=== PATIENT | male | born 1965 | race Caucasian/White ===

== ENCOUNTER 2021-05-27 21:47 | Emergency (ER) | payer OTHER ==
[2021-05-27] MEDS ORDERED: Sodium Chloride 0.9% 1,000 ML IV SCH (22:30)
[2021-05-27] MEDS ORDERED: Sodium Chloride 0.9% 10 ML Syringe FLUSH PRN (22:30)
[2021-05-27] MEDS ORDERED: LORazepam 2 MG/ML SDV IVPUSH ONE (22:31)
--- NOTE | 2021-05-28 00:15 | EDM.PDOC ---
ED HPI GENERAL MEDICAL PROBLEM - General Chief Complaint: Gastrointestinal Problem Stated Complaint: HERNIA COMPLAINT Time Seen by Provider: 05/27/21 22:05 Source of Information: Reports: Patient History Limitations: Reports: No Limitations - History of Present Illness INITIAL COMMENTS - FREE TEXT/NARRATIVE: The patient has an umbilical hernia. He had this for over a years. For the past 5 to 6 months he can push it back in. He says today he cannot push it back in. He has a little discomfort. He has no nausea or vomiting, fever, chills, cough, chest pain, shortness of breath or bowel problems. Onset: Gradual Duration: Hour(s): Location: Reports: Abdomen Quality: Reports: Ache Severity: Mild Improves with: Reports: None Worsens with: Reports: None Associated Symptoms: Reports: No Other Symptoms Treatments IT SYSTEMS ANALYST: Reports: NSAIDS Mid-Anterior Abdomen Pain Score (Numeric/FACES): 4 - Related Data Allergies Allergy/AdvReac Type Severity Reaction Status Date / Time No Known Allergies Allergy Verified 05/27/21 22:02 Home Meds: Home Meds Buprenorphine HCl/Naloxone HCl [Suboxone 12 mg-3 mg Sl Film] 1 each SL DAILY 05/27/21 [History] Past Medical History - Past Health History Medical/Surgical History: Denies Medical/Surgical History Gastrointestinal History: Reports: Other (See Below) Other Gastrointestinal History: Has an abdominal hernia - Past Surgical History GI Surgical History: Reports: Hernia, Abdominal Social & Family History - Family History Family Medical History: No Pertinent Family History - Tobacco Use Tobacco Use Status *Q: Current Every Day Tobacco User Years of Tobacco use: 20 Packs/Tins Daily: 1 - Recreational Drug Use Recreational Drug Use: No ED ROS GENERAL - Review of Systems Review Of Systems: See Below Constitutional: Reports: No Symptoms HEENT: Reports: No Symptoms Respiratory: Reports: No Symptoms Cardiovascular: Reports: No Symptoms Endocrine: Reports: No Symptoms GI/Abdominal: Reports: Abdominal Pain. Denies: Diarrhea, Nausea, Vomiting : Reports: No Symptoms Musculoskeletal: Reports: No Symptoms ED EXAM, GI/ABD - Physical Exam Exam: See Below Exam Limited By: No Limitations General Appearance: Alert, No Apparent Distress Ears: Normal External Exam Nose: Normal Inspection Head: Atraumatic, Normocephalic Neck: Normal Inspection Respiratory/Chest: No Respiratory Distress, Lungs Clear, Normal Breath Sounds Cardiovascular: Regular Rate, Rhythm, No Edema, No Murmur GI/Abdominal Exam: Soft, No Organomegaly, No Mass, Other (Umbilical hernia. There is no tenderness to palpation.) Course - Vital Signs Last Recorded V/S: Last Vital Signs Temp 96.8 F L 05/27/21 22:06 Pulse 52 L 05/27/21 22:06 Resp 16 05/27/21 22:06 BP 134/79 05/27/21 22:06 Pulse Ox 98 05/27/21 22:06 - Orders/Labs/Meds Orders: Active Orders 24 hr Category Date Time Status Cardiac Monitoring [RC] . DIRECTED Care 05/27/21 22:30 Active Peripheral IV Care [RC] . DIRECTED Care 05/27/21 22:31 Active Sodium Chloride 0.9% [Normal Saline] 1,000 ml Med 05/27/21 22:30 Active IV ASDIRECTED Sodium Chloride 0.9% [Saline Flush] Med 05/27/21 22:30 Active 10 ml FLUSH ASDIRECTED PRN Peripheral IV Insertion Adult [OM.PC] Stat Oth 05/27/21 22:30 Ordered Medication Orders Sodium Chloride (Normal Saline) 1,000 mls @ 125 mls/hr IV ASDIRECTED ODETTE Last Admin: 05/27/21 23:03 Dose: 125 mls/hr Documented by: GRADY Sodium Chloride (Sodium Chloride 0.9% 10 Ml Syringe) 10 ml FLUSH ASDIRECTED PRN PRN Reason: Keep Vein Open Last Admin: 05/27/21 23:03 Dose: 10 ml Documented by: GRADY Labs: Laboratory Tests 05/27/21 05/27/21 05/27/21 Range/Units 22:55 22:55 22:55 WBC 10.43 H (4.23-9.07) K/mm3 RBC 4.92 (4.63-6.08) M/mm3 Hgb 13.8 (13.7-17.5) gm/dl Hct 42.3 (40.1-51.0) % MCV 86.0 (79.0-92.2) fl MCH 28.0 (25.7-32.2) pg MCHC 32.6 (32.2-35.5) g/dl RDW Std Deviation 40.1 (35.1-43.9) fL Plt Count 268 (163-337) K/mm3 MPV 11.4 (9.4-12.3) fl Neut % (Auto) 67.1 (34.0-67.9) % Lymph % (Auto) 23.0 (21.8-53.1) % Will % (Auto) 7.8 (5.3-12.2) % Eos % (Auto) 1.6 (0.8-7.0) Baso % (Auto) 0.3 (0.1-1.2) % Neut # (Auto) 7.00 H (1.78-5.38) K/mm3 Lymph # (Auto) 2.40 (1.32-3.57) K/mm3 Will # (Auto) 0.81 (0.30-0.82) K/mm3 Eos # (Auto) 0.17 (0.04-0.54) K/mm3 Baso # (Auto) 0.03 (0.01-0.08) K/mm3 Sodium 137 (136-145) mEq/L Potassium 4.2 (3.5-5.1) mEq/L Chloride 102 (98-107) mEq/L Carbon Dioxide 29 (21-32) mEq/L Anion Gap 10.2 (5-15) BUN 10 (7-18) mg/dL Creatinine 0.9 (0.7-1.3) mg/dL Est Cr Clr Drug Dosing 98.77 mL/min Estimated GFR (MDRD) > 60 (>60) mL/min BUN/Creatinine Ratio 11.1 L (14-18) Glucose 109 H (70-99) mg/dL Lactic Acid 0.8 (0.4-2.0) mmol/L Calcium 8.9 (8.5-10.1) mg/dL Total Bilirubin 0.6 (0.2-1.0) mg/dL AST 28 (15-37) U/L ALT 31 (16-63) U/L Alkaline Phosphatase 79 (46-116) U/L Total Protein 7.6 (6.4-8.2) g/dl Albumin 3.6 (3.4-5.0) g/dl Globulin 4.0 gm/dL Albumin/Globulin Ratio 0.9 L (1-2) Meds: Medications Generic Name Dose Route Start Last Admin Trade Name Freq PRN Reason Stop Dose Admin Sodium Chloride 1,000 mls @ 125 mls/hr 05/27/21 22:30 05/27/21 23:03 Normal Saline IV 125 mls/hr ASDIRECTED ODETTE Administration Sodium Chloride 10 ml 05/27/21 22:30 05/27/21 23:03 Sodium Chloride 0.9% 10 Ml Syringe FLUSH 10 ml ASDIRECTED PRN Administration Keep Vein Open Discontinued Medications Generic Name Dose Route Start Last Admin Trade Name Paz PRN Reason Stop Dose Admin Lorazepam 1 mg 05/27/21 22:31 05/27/21 23:03 Lorazepam 2 Mg/Ml Sdv IVPUSH 05/27/21 22:32 1 mg ONETIME ONE Administration - Re-Assessments/Exams Free Text/Narrative Re-Assessment/Exam: 05/28/21 00:13 I had my nurse put an IV and give him ativan 1mg IV. I the had her put him in [place] and I gently pushed on the hernia. It was able to reduce some. He says it feels better. His WBC was slightly elevated at 10.43. His CMP looks good. 05/28/21 00:18 He feels better. The hernia is not reduced all the way but it feels better. I do not feel it is incarcerated at this time. I will discharge him home and have him follow up with Dr Yi. Departure - Departure Time of Disposition: 12:20 Disposition: Home, Self-Care 01 Condition: Good Clinical Impression: Umbilical hernia Qualifiers: Obstruction and gangrene presence: without obstruction or gangrene Qualified Code(s): K42.9 - Umbilical hernia without obstruction or gangrene - Discharge Information *PRESCRIPTION DRUG MONITORING PROGRAM REVIEWED*: Not Applicable *COPY OF PRESCRIPTION DRUG MONITORING REPORT IN PATIENT PHILLIP: Not Applicable Referrals: PCP,None [Primary Care Provider] - Viktoria Yi MD [Physician] - 1 Week Forms: ED Department Discharge Additional Instructions: Try not to lift anything over 10 pounds. A milk jug is about 8 pounds. If you have more pain and the hernia is out more. Lay on the floor with your feet up on the bed or couch and gently push on the hernia and see if it reduces. If it does not please return. Follow up with Dr Yi within a week. Sepsis Event Note (ED) - Evaluation Sepsis Screening Result: No Definite Risk - Focused Exam Vital Signs: Vital Signs Temp Pulse Resp BP Pulse Ox 05/27/21 22:06 96.8 F L 52 L 16 134/79 98 - My Orders Last 24 Hours: My Active Orders 05/27/21 22:30 Cardiac Monitoring [RC] . DIRECTED Sodium Chloride 0.9% [Normal Saline] 1,000 ml IV ASDIRECTED Sodium Chloride 0.9% [Saline Flush] 10 ml FLUSH ASDIRECTED PRN Peripheral IV Insertion Adult [OM.PC] Stat 05/27/21 22:31 Peripheral IV Care [RC] . DIRECTED - Assessment/Plan Last 24 Hours: My Active Orders 05/27/21 22:30 Cardiac Monitoring [RC] . DIRECTED Sodium Chloride 0.9% [Normal Saline] 1,000 ml IV ASDIRECTED Sodium Chloride 0.9% [Saline Flush] 10 ml FLUSH ASDIRECTED PRN Peripheral IV Insertion Adult [OM.PC] Stat 05/27/21 22:31 Peripheral IV Care [RC] . DIRECTED
== END 2021-05-28 00:30 | disposition home or self-care (01) ==
LOC: JD.ED 21:47
DX: K42.9 Umbilical hernia without obstruction or gangrene (principal); Z72.0 Tobacco use
CPT/HCPCS: 36415; 80053; 83605; 85025; 96374; 99284; J2060; J7030